=== PATIENT | female | born 1990 | race Caucasian/White ===

== ENCOUNTER 2022-08-18 14:18 | Emergency (ER) | payer MEDICAID ==
[~2022-08-18] VITALS: Ht 157.5 cm; Wt 59.0 kg
[2022-08-18 14:43] VITALS: BP 117/74
== END 2022-08-18 16:46 | disposition left against medical advice (07) ==
LOC: ER 14:18
DX: Z53.21 Procedure and treatment not carried out due to patient leaving prior to being seen by health care provider (principal); Z98.890 Other specified postprocedural states

== ENCOUNTER 2022-10-16 09:03 | Emergency (ER) | payer MEDICAID ==
[~2022-10-16] VITALS: Ht 154.9 cm; Wt 60.0 kg
[2022-10-16 09:20] VITALS: BP 143/82
[2022-10-16] MEDS ORDERED: ACETAMINOPHEN 325MG TABLET PO STA (10:48)
[2022-10-16 15:04] LABS: BASOPHILS % 0.7 % (0.0-2.0); EOSINOPHILS % 3.2 % (0.0-5.0); HEMATOCRIT. 41.4 % (36.0-48.0); LYMPHOCYTES % 34.7 % (20.0-50.0); MEAN CORPUSCULAR HEMOGLOBIN 29.4 pg (28.0-32.0); MEAN CORPUSCULAR VOLUME 86.8 fL (81.0-99.0); MEAN PLATELET VOLUME 7.6 fl (7.4-10.4); MONOCYTES % 7.1 % (2.0-8.0); NEUTROPHILS % 54.3 % (40.0-76.0); PLATELET 317 x1000/uL (130-400); RED BLOOD CELL COUNT 4.77 mill/uL (4.2-5.4)
[2022-10-16] MEDS ORDERED: ACETAMINOPHEN 325MG TABLET PO NR (15:15)
[2022-10-16 15:20] LABS: CHLORIDE 106 mEq/L (98-107); HCG SCREEN NEGATIVE
[2022-10-16 16:37] LABS: CLARITY URINE CLEAR (CLEAR); COLOR URINE YELLOW (YELLOW); KETONES URINE NEGATIVE (NEGATIVE); LEUKOCYTE ESTERASE URINE NEGATIVE (NEGATIVE); NITRITE URINE NEGATIVE (NEGATIVE); OCCULT BLOOD URINE NEGATIVE (NEGATIVE); PH URINE 5.5 (4.5-8.0); PROTEIN URINE NEGATIVE (NEGATIVE); SPECIFIC GRAVITY URINE 1.022 (1.005-1.030); UROBILINOGEN URINE 0.2 E.U./dL (0.2-1.0)
[2022-10-16] MEDS ORDERED: IBUP-2029 MT (17:03)
== END 2022-10-16 17:21 | disposition home or self-care (01) ==
LOC: ER 09:03
DX: R07.89 Other chest pain (principal); Z98.890 Other specified postprocedural states
CPT/HCPCS: 36415; 71045; 80053; 81003; 81025; 84484; 84703; 85025; 85379; 93005; 99285

== ENCOUNTER 2022-11-16 12:13 | Emergency (ER) | payer MEDICAID ==
[~2022-11-16] VITALS: Ht 152.4 cm; Wt 53.6 kg
[~2022-11-16 12:13] MED LIST: IBUP-2029 MT
[2022-11-16 12:28] VITALS: BP 105/53
[2022-11-16] MEDS ORDERED: CLOT15CR27 TP (16:00)
[2022-11-16 18:41] LABS: BASOPHILS % 0.5 % (0.0-2.0); EOSINOPHILS % 1.6 % (0.0-5.0); HEMATOCRIT. 38.2 % (36.0-48.0); HEMOGLOBIN. 13.1 g/dL (12.0-16.0); LYMPHOCYTES % 26.1 % (20.0-50.0); MEAN CORPUSCULAR HEMOGLOBIN 29.7 pg (28.0-32.0); MEAN PLATELET VOLUME 7.2 fl (7.4-10.4); MONOCYTES % 7.3 % (2.0-8.0); NEUTROPHILS % 64.5 % (40.0-76.0); PLATELET 311 x1000/uL (130-400); RED BLOOD CELL COUNT 4.39 mill/uL (4.2-5.4); RED CELL DISTRIBUTION WIDTH 12.8 % (11.6-14.6)
[2022-11-16 18:53] LABS: PARTIAL THROMBOPLASTIN TIME 27.1 sec (23.4-31.0); PROTHROMBIN TIME 10.9 sec (9.6-11.0)
[2022-11-16 18:56] LABS: CHLORIDE 105 mEq/L (98-107)
== END 2022-11-16 22:38 | disposition home or self-care (01) ==
LOC: ER 12:31
DX: B35.4 Tinea corporis (principal); R21 Rash and other nonspecific skin eruption; Z98.890 Other specified postprocedural states
CPT/HCPCS: 36415; 76801; 80053; 81025; 84702; 85025; 86886; 99284

== ENCOUNTER 2022-11-22 16:11 | Emergency (ER) | payer MEDICAID ==
[~2022-11-22] VITALS: Ht 160 cm; Wt 54.0 kg
[~2022-11-22 16:11] MED LIST changes: +CLOT15CR27 TP
[2022-11-22 16:37] LABS: BASOPHILS % 0.5 % (0.0-2.0); EOSINOPHILS % 1.4 % (0.0-5.0); HEMATOCRIT. 39.2 % (36.0-48.0); HEMOGLOBIN. 13.2 g/dL (12.0-16.0); LYMPHOCYTES % 28.4 % (20.0-50.0); MEAN CORPUSCULAR HEMOGLOBIN 29.3 pg (28.0-32.0); MEAN CORPUSCULAR VOLUME 87.2 fL (81.0-99.0); MEAN PLATELET VOLUME 7.2 fl (7.4-10.4); MONOCYTES % 5.3 % (2.0-8.0); NEUTROPHILS % 64.4 % (40.0-76.0); PLATELET 316 x1000/uL (130-400); RED BLOOD CELL COUNT 4.49 mill/uL (4.2-5.4); RED CELL DISTRIBUTION WIDTH 12.9 % (11.6-14.6)
[2022-11-22 18:48] VITALS: BP 122/77
== END 2022-11-22 18:49 | disposition home or self-care (01) ==
LOC: ER 16:11
DX: Z98.890 Other specified postprocedural states (principal); N93.9 Abnormal uterine and vaginal bleeding, unspecified
CPT/HCPCS: 36415; 76830; 76856; 84702; 85025; 99284

== ENCOUNTER 2022-12-21 09:04 | Emergency (ER) | payer MEDICAID ==
[~2022-12-21] VITALS: Ht 152.4 cm; Wt 57.0 kg
[2022-12-21 09:13] VITALS: BP 125/84
[2022-12-21] MEDS ORDERED: KETO15CR2 TP (09:27)
== END 2022-12-21 09:33 | disposition home or self-care (01) ==
LOC: ER 09:04
DX: B35.4 Tinea corporis (principal); Z98.890 Other specified postprocedural states
CPT/HCPCS: 99283